=== PATIENT | male | born 1970 | race Caucasian/White ===

== ENCOUNTER 2020-04-08 22:43 | Observation (INO) | payer OTHER ==
[~2020-04-08] VITALS: Ht 175.3 cm; Wt 105.9 kg
[~2020-04-08 22:43] MED LIST: Aspirin EC81 MG PO; BUSP10 PO; CARV25 PO; DULO30 PO; DULO60 PO; ENOX100I SC; ENTRESTO 97 MG1 EACH PO; FURO40 PO; LISI20 PO; NIAC500 PO; POTA10T PO; ROSU5 PO; SOTO80 PO; SPIR25 PO; WARF5; WARF7.5 PO
[2020-04-08 23:27] LABS: BASOPHILS ABSOLUTE AUTO 0.07 K/mm3 (0.00-0.23); BASOPHILS PERCENT AUTO 1 % (0-2); EOSINOPHILS ABSOLUTE AUTO 0.15 K/mm3 (0.00-0.68); EOSINOPHILS PERCENT AUTO 2 % (0-6); Hematocrit 45.7 % (37.0-53.0); Hemoglobin 15.8 g/dL (13.5-17.5); IMMATURE GRAN ABSOLUTE AUTO 0.05 K/mm3 (0.00-0.10); IMMATURE GRAN PERCENT AUTO 1 % (0-1); LYMPHOCYTES PERCENT AUTO 27 % (21-46); MONOCYTES PERCENT AUTO 7 % (4-13); Mean Corpuscular HGB 31.1 pg (26.0-34.0); Mean Corpuscular HGB Conc 34.6 g/dL (31.5-36.5); Mean Corpuscular Volume 90 fL (80-100); NEUTROPHILS ABSOLUTE AUTO 6.16 K/mm3 (1.96-9.15); NEUTROPHILS PERCENT AUTO 63 % (41-73); Platelet Count 197 K/mm3 (150-400); RDW Coefficient Variation 13.4 % (11.7-14.2); RDW Standard Deviation 44.5 fL (35.1-46.3); Red Blood Cell Count 5.08 M/mm3 (4.30-5.90); White Blood Cell Count 9.73 K/mm3 (4.00-11.30)
[2020-04-08 23:47] LABS: Alanine Aminotransfer (ALT/SGP 52 U/L (12-78); Albumin, Blood 4.2 g/dL (3.4-5.0); Albumin/Globulin Ratio 1.4 (0.8-1.8); Alk Phos 87 U/L (50-136); Anion Gap 8 mmol/L (6-16); Aspartate Aminotrans (AST/SGOT 33 U/L (12-37); Bilirubin, Total 0.6 mg/dL (0.1-1.0); Blood Urea Nitrogen 14 mg/dL (8-24); Bun/Creatinine Ratio 15.5 (12.0-20.0); CO2, Blood 26 mmol/L (21-32); Calcium, Blood 8.5 mg/dL (8.5-10.1); Chloride, Blood 103 mmol/L (98-108); Creatinine, Blood 0.91 mg/dL (0.60-1.20); Glomerular Filtration Rate >60 (60-); Glucose, Blood 129 mg/dL (70-99); Potassium, Blood 3.4 mmol/L (3.5-5.5); Sodium, Blood 137 mmol/L (136-145); Total Protein, Blood 7.2 g/dL (6.4-8.2); Troponin I 0.084 ng/mL (0.000-0.040)
[2020-04-09 00:20] LABS: International Normalized Ratio 2.41; Prothrombin Time Results 24.5 Sec (9.7-11.5)
[2020-04-09] MEDS ORDERED: FURO40 PO (02:04)
[2020-04-09] MEDS ORDERED: WARF5 PO (02:06)
[2020-04-09] MEDS ORDERED: Amiodarone HCl200 MG PO (02:07)
[2020-04-09] MEDS ORDERED: METF500 PO (02:08)
[2020-04-09] MEDS ORDERED: FARXIGA10 MG PO (02:08)
[2020-04-09] MEDS ORDERED: BUSP10 PO (02:09)
--- NOTE | 2020-04-09 03:11 | NUR ---
PT UP TO ICU 1 FROM ED VIA [facility]. PT AWAKE, A&O. AMBULATES ON OWN AND TRANSFERRED TO ICU ON OWN. LUNG SOUNDS CLEAR, SATS WELL ON RA. PT HAS DUAL PACER/AICD THAT SHOCKED HIM AROUND 2200 YESTERDAY. PT HAD A 1 MIN EPISODE OF VFIB. VOIDS ON OWN. VSS. WILL CONTINUE TO MONITOR
[2020-04-09 05:21] LABS: Anion Gap 8 mmol/L (6-16); Blood Urea Nitrogen 13 mg/dL (8-24); Bun/Creatinine Ratio 16.5 (12.0-20.0); CO2, Blood 25 mmol/L (21-32); Calcium, Blood 8.4 mg/dL (8.5-10.1); Chloride, Blood 104 mmol/L (98-108); Creatinine, Blood 0.79 mg/dL (0.60-1.20); Glomerular Filtration Rate >60 (60-); Glucose, Blood 132 mg/dL (70-99); Potassium, Blood 3.8 mmol/L (3.5-5.5); Sodium, Blood 137 mmol/L (136-145); Troponin I 0.205 ng/mL (0.000-0.040)
--- NOTE | 2020-04-09 05:41 | NUR ---
SHIFT SUMMARY: NO ACUTE CHANGES T/O SHIFT. PT RESTING COMFORTABLY. VSS. DID OCCASIONALLY DESAT FOR A MOMENT BUT THEN WOULD RECOVER BACK TO >95%. WILL PASS REPORT TO ONCOMING SHIFT
--- NOTE | 2020-04-09 07:27 | NUR ---
ASSUMED CARE: RECEIVED REPORT FROM NOC RN. PT APPEARS TO BE SLEEPING UPON ENTERING THE ROOM. EVEN CHEST RISE AND FALL NOTED. NO ACUTE DISTRESS NOTED. HR APPEARS 100% PACED IN THE 60'S AT THIS TIME. WILL CONTINUE TO MONIOTOR AND ASSESS FURTHER.
--- NOTE | 2020-04-09 08:50 | NUR ---
CALL OUT TO DR BARAJAS AWAITING CALL BACK STATES HE IS ON THE OTHER LINE.
[2020-04-09] MEDS ORDERED: POTCHL20ER PO (12:57)
--- NOTE | 2020-04-09 13:08 | NUR ---
POTASSIUM SUPPLEMENTS ORDERED AFTER PT WAS ALREADY DISCHARGED. ATTEMPTED TO CALL IN PT TO INFORM OF PERSCRIPTION BEING CALLED IN TO [facility].
--- NOTE | 2020-04-09 13:10 | NUR ---
PT WALKED OUT OF THE UNIT AT 1240 NO ACUTE DISTRESS NOTED.
== END 2020-04-09 12:40 | disposition home or self-care (01) ==
LOC: ER 22:43 → ERHOLD 22:44 → ER 04-09 00:35 → ERHOLD 04-09 00:35 → ICUE 04-09 00:35 → ERHOLD 04-09 02:26 → ICUE 04-09 02:26
PROVIDERS: Physician Assistant; ADMIT Family Medicine
DX: I49.01 Ventricular fibrillation (principal); I47.1 Supraventricular tachycardia; I42.9 Cardiomyopathy, unspecified; E87.6 Hypokalemia; I50.22 Chronic systolic (congestive) heart failure; Z95.810 Presence of automatic (implantable) cardiac defibrillator; Z95.2 Presence of prosthetic heart valve; Z79.01 Long term (current) use of anticoagulants; Z79.84 Long term (current) use of oral hypoglycemic drugs; Z79.899 Other long term (current) drug therapy; Z23 Encounter for immunization
CPT/HCPCS: 36415; 71045; 80048; 80053; 83735; 83880; 84484; 85025; 85610; 93005; 93010; 99285-25; A9270; G0378

== ENCOUNTER 2020-04-16 20:34 | Emergency (ER) | payer OTHER ==
[~2020-04-16] VITALS: Ht 172.7 cm; Wt 113.4 kg
[~2020-04-16 20:34] MED LIST changes: +Amiodarone HCl200 MG PO; +FARXIGA10 MG PO; +METF500 PO; +POTCHL20ER PO; +WARF5 PO
[2020-04-16 20:58] LABS: BASOPHILS ABSOLUTE AUTO 0.06 K/mm3 (0.00-0.23); BASOPHILS PERCENT AUTO 1 % (0-2); EOSINOPHILS ABSOLUTE AUTO 0.07 K/mm3 (0.00-0.68); EOSINOPHILS PERCENT AUTO 1 % (0-6); Hematocrit 46.9 % (37.0-53.0); Hemoglobin 15.9 g/dL (13.5-17.5); IMMATURE GRAN ABSOLUTE AUTO 0.04 K/mm3 (0.00-0.10); IMMATURE GRAN PERCENT AUTO 0 % (0-1); LYMPHOCYTES ABSOLUTE AUTO 2.27 K/mm3 (0.84-5.20); LYMPHOCYTES PERCENT AUTO 24 % (21-46); MONOCYTES ABSOLUTE AUTO 0.71 K/mm3 (0.16-1.47); MONOCYTES PERCENT AUTO 8 % (4-13); Mean Corpuscular HGB 30.4 pg (26.0-34.0); Mean Corpuscular HGB Conc 33.9 g/dL (31.5-36.5); Mean Corpuscular Volume 90 fL (80-100); Mean Platelet Volume 10.2 fL (9.1-12.4); NEUTROPHILS ABSOLUTE AUTO 6.28 K/mm3 (1.96-9.15); NEUTROPHILS PERCENT AUTO 67 % (41-73); Platelet Count 228 K/mm3 (150-400); RDW Coefficient Variation 13.4 % (11.7-14.2); RDW Standard Deviation 44.1 fL (35.1-46.3); Red Blood Cell Count 5.23 M/mm3 (4.30-5.90); White Blood Cell Count 9.43 K/mm3 (4.00-11.30)
[2020-04-16 21:07] LABS: Source, Urine Voided
[2020-04-16 21:09] LABS: Appearance, Urine Clear (Clear); Bilirubin, Urine Neg (Neg); Blood, Urine 3+ (Neg); Color, Urine Yellow (P-Yellow); Glucose Qualitative, Urine 4+ (Neg); Ketones, Urine Neg (Neg); Leukocyte Esterase, Urine Neg (Neg); Nitrite, Urine Neg (Neg); Protein, Urine 3+ (Neg); Specific Gravity, Urine 1.015 (1.003-1.022); Urobilinogen, Urine NORM (Normal)
[2020-04-16 21:18] LABS: Alanine Aminotransfer (ALT/SGP 48 U/L (12-78); Albumin, Blood 4.1 g/dL (3.4-5.0); Albumin/Globulin Ratio 1.3 (0.8-1.8); Alk Phos 78 U/L (50-136); Anion Gap 8 mmol/L (6-16); Aspartate Aminotrans (AST/SGOT 33 U/L (12-37); Bilirubin, Total 0.9 mg/dL (0.1-1.0); Blood Urea Nitrogen 14 mg/dL (8-24); Bun/Creatinine Ratio 14.8 (12.0-20.0); CO2, Blood 26 mmol/L (21-32); Calcium, Blood 8.8 mg/dL (8.5-10.1); Chloride, Blood 105 mmol/L (98-108); Creatinine, Blood 0.95 mg/dL (0.60-1.20); Globulin, Blood 3.1 g/dL (2.2-4.0); Glomerular Filtration Rate >60 (60-); Glucose, Blood 142 mg/dL (70-99); Potassium, Blood 3.2 mmol/L (3.5-5.5); Sodium, Blood 139 mmol/L (136-145); Total Protein, Blood 7.2 g/dL (6.4-8.2); Troponin I 0.021 ng/mL (0.000-0.040)
[2020-04-16 21:22] LABS: Bacteria Not Seen /hpf; Squamous Epithelial Cells Rare /hpf (Few); White Blood Cells, Urine Rare /hpf (0-5)
== END 2020-04-16 23:22 | disposition short-term general hospital (02) ==
LOC: ER 20:34
PROVIDERS: Emergency Medicine
DX: I47.2 Ventricular tachycardia (principal); E87.6 Hypokalemia; I50.9 Heart failure, unspecified; Z20.828 Contact with and (suspected) exposure to other viral communicable diseases; Z79.01 Long term (current) use of anticoagulants; Z79.84 Long term (current) use of oral hypoglycemic drugs; Z98.890 Other specified postprocedural states; Z79.899 Other long term (current) drug therapy
CPT/HCPCS: 71045; 80053; 81001; 83690; 83735; 83880; 84484; 85025; 85379; 93005; 93010; 99285-25; A9270; J3480; U0003

== ENCOUNTER 2023-06-29 14:51 | Emergency (ER) | payer MEDICARE, OTHER ==
[~2023-06-29] VITALS: Ht 175.3 cm; Wt 106.6 kg
[~2023-06-29 14:51] MED LIST changes: +ACET325 PO; -Amiodarone HCl200 MG PO; +Pacerone400 MG PO; +VITAMIN D325 MC3 PO
[2023-06-29 15:20] LABS: BASOPHILS ABSOLUTE AUTO 0.05 K/mm3 (0.00-0.23); BASOPHILS PERCENT AUTO 1 % (0-2); EOSINOPHILS ABSOLUTE AUTO 0.05 K/mm3 (0.00-0.68); EOSINOPHILS PERCENT AUTO 1 % (0-6); Hematocrit 40.8 % (37.0-53.0); Hemoglobin 13.4 g/dL (13.5-17.5); IMMATURE GRAN ABSOLUTE AUTO 0.02 K/mm3 (0.00-0.10); IMMATURE GRAN PERCENT AUTO 0 % (0-1); LYMPHOCYTES PERCENT AUTO 11 % (21-46); MONOCYTES ABSOLUTE AUTO 0.41 K/mm3 (0.16-1.47); MONOCYTES PERCENT AUTO 6 % (4-13); Mean Corpuscular HGB 29.8 pg (26.0-34.0); Mean Corpuscular HGB Conc 32.8 g/dL (31.5-36.5); Mean Corpuscular Volume 91 fL (80-100); Mean Platelet Volume 10.4 fL (9.1-12.4); NEUTROPHILS ABSOLUTE AUTO 5.77 K/mm3 (1.96-9.15); NEUTROPHILS PERCENT AUTO 81 % (41-73); Platelet Count 177 K/mm3 (150-400); RDW Coefficient Variation 14.5 % (11.7-14.2); RDW Standard Deviation 48.8 fL (35.1-46.3); Red Blood Cell Count 4.49 M/mm3 (4.30-5.90)
[2023-06-29 15:48] LABS: Albumin, Blood 3.3 g/dL (3.4-5.0); Albumin/Globulin Ratio 0.9 (0.8-1.8); Bilirubin, Total 0.6 mg/dL (0.1-1.0); Bun/Creatinine Ratio 14.8 (12.0-20.0); Calcium, Blood 8.4 mg/dL (8.5-10.1); Creatinine, Blood 0.88 mg/dL (0.60-1.20); Globulin, Blood 3.8 g/dL (2.2-4.0); Potassium, Blood 4.2 mmol/L (3.5-5.5); Total Protein, Blood 7.1 g/dL (6.4-8.2)
[2023-06-29] MEDS ORDERED: HYDR10 (17:17)
[2023-06-29] MEDS ORDERED: EUTHYROX50 MCG (17:18)
[2023-06-29] MEDS ORDERED: MAGCHL64ER (17:18)
[2023-06-29] MEDS ORDERED: MEXI200 PO (17:19)
[2023-06-29] MEDS ORDERED: ROSU5 PO (17:19)
[2023-06-29] MEDS ORDERED: Amiodarone HCl200 MG PO (18:30)
[2023-06-29 19:00] VITALS: BP 102/65
== END 2023-06-29 19:09 | disposition home or self-care (01) ==
LOC: ER 14:51
PROVIDERS: Physician Assistant
DX: I47.20 Ventricular tachycardia, unspecified (principal); Z45.02 Encounter for adjustment and management of automatic implantable cardiac defibrillator; I50.9 Heart failure, unspecified; I42.0 Dilated cardiomyopathy; Z95.2 Presence of prosthetic heart valve; Z79.01 Long term (current) use of anticoagulants; Z79.899 Other long term (current) drug therapy; Z79.84 Long term (current) use of oral hypoglycemic drugs; Z79.890 Hormone replacement therapy
CPT/HCPCS: 80053; 83735; 84484; 85025; 93005; 93010; 99284-25; A9270